=== PATIENT | male | born 2000 | race Caucasian/White ===

== ENCOUNTER 2022-07-13 11:19 | Outpatient (OUT) | payer OTHER, SELFPAY ==
--- NOTE | 2022-07-13 11:26 | XR_ITS ---
[place] [id number] Patient Name: MARYCARMEN PICKERING MRN: [id number] date: 2000 Sex: M Assigned Patient Location: RAD Current Patient Location: [facility] Accession/Order Number: [id number] Exam Date: 07/13/2022 11:26 Report Date: 07/14/2022 07:15 At the request of: DIPTI JASON Procedure: XR foot RT min 3V PROCEDURE: XR foot RT min 3V HISTORY: RIGHT FOOT PAIN ; follow-up right first toe fracture COMPARISON: XR foot right 06/15/2022 FINDINGS: BONES:Increasing density of the fracture line involving the distal lateral corner of the first proximal phalanx. No displacement or articular surface step off. SOFT TISSUES:No visible soft tissue swelling. EFFUSION:None visible. OTHER: Negative. IMPRESSION: 1. Normal alignment and ongoing bone healing of the right foot first proximal phalanx fracture. Electronically authenticated by: RORY ORTIZ Date: 07/14/2022 07:15
== END 2022-07-13 11:20 ==
LOC: RAD 11:20
PROVIDERS: Visit Provider Podiatrist Foot & Ankle Surgery
DX: S92.414A Nondisplaced fracture of proximal phalanx of right great toe, initial encounter for closed fracture (principal)
CPT/HCPCS: 73630